=== PATIENT | female | born 1980 | race Caucasian/White ===

== ENCOUNTER 2019-03-17 13:03 | Emergency (ER) | payer BC, OTHER, SELFPAY ==
[~2019-03-17] VITALS: Ht 142.2 cm; Wt 95.5 kg
[2019-03-17] MEDS ORDERED: ONDANSETRON 4MG/2ML VIAL (J2405) IV ONE (14:00)
[2019-03-17] MEDS ORDERED: KETOROLAC 30 MG/ML VIAL (J1885) IV ONE (14:00)
[2019-03-17 14:28] LABS: BASO # 0.1 10^3/uL (0.0-0.2); BASO % 0.4 % (0.0-1.0); EOS # 0.1 10^3/uL (0.0-0.50); EOS % 0.8 % (0.0-3.0); HEMOGLOBIN 14.1 g/dl (12.0-15.5); LYMPH # 1.5 10^3/uL (1.5-4.5); LYMPH % 13.8 % (24.0-44.0); MEAN CORPUSCULAR HEMOGLOBIN 29.6 pg (27.0-33.0); MEAN CORPUSCULAR HGB CONC 32.8 g/dl (32.0-36.5); MEAN CORPUSCULAR VOLUME 90.1 fl (80.0-96.0); MONO # 0.5 10^3/uL (0.0-0.8); MONO % 4.1 % (0.0-5.0); NEUTROPHILS % 80.5 % (36.0-66.0); PLATELET COUNT, AUTOMATED 309 10^3/uL (150-450); RED BLOOD COUNT 4.77 10^6/uL (4.00-5.40); WHITE BLOOD COUNT 11.2 10^3/uL (4.0-10.0)
[2019-03-17 14:51] LABS: ALBUMIN 3.8 GM/DL (3.2-5.2); ALT/SGPT 27 U/L (12-78); BILIRUBIN,TOTAL 1.3 MG/DL (0.2-1.0); BLOOD UREA NITROGEN 11 MG/DL (7-18); CARBON DIOXIDE LEVEL 27 MEQ/L (21-32); CHLORIDE LEVEL 108 MEQ/L (98-107); GLOMERULAR FILTRATION RATE > 60.0 (>58); GLUCOSE, FASTING 129 MG/DL (70-100); LIPASE 86 U/L (73-393); POTASSIUM SERUM 3.6 MEQ/L (3.5-5.1); SODIUM LEVEL 142 MEQ/L (136-145); TOTAL PROTEIN 7.1 GM/DL (6.4-8.2)
--- NOTE | 2019-03-17 15:12 | REP ---
CT ABDOMEN AND PELVIS WITHOUT IV CONTRAST: CT abdomen and pelvis performed without oral or IV contrast. Sagittal and coronal reconstruction images are performed. Visualized lung bases are clear. The liver demonstrates nodular contour at the lateral surface of the inferior aspect of the right lobe of the liver with an approximate diameter of 1.6 cm maximally. The patient has had a prior cholecystectomy. There is no biliary dilatation. The spleen, adrenals, and pancreas are grossly unremarkable. There is moderate right hydroureteronephrosis caused by a 6 x 4 mm calculus at the right ureterovesical junction. There is no abdominal aortic aneurysm. I see no adenopathy. There is no free air or free fluid. No bowel wall thickening is seen. Scattered diverticula are seen of the colon. Small ventral hernia is seen just above the umbilicus with a wide aperture. This only contains fat. Ovaries are present and unremarkable. No pelvic mass is seen. Urinary bladder is not well distended and not well evaluated. There is a small hiatal hernia. IMPRESSION: Calculus at the right ureterovesical junction measures 6 x 4 mm causing moderate right hydroureteronephrosis. Nodular surface contour right lobe of liver inferolaterally 1.6 cm in diameter. Cannot exclude underlying liver nodule. Recommend followup MRI or CT liver with contrast. Electronically Signed by Roverto Bailey MD 03/17/2019 06:48 P
[2019-03-17 20:56] VITALS: BP 113/56
--- NOTE | 2019-03-18 10:40 | HPEPDOC ---
General Date of Admission 03/17/19 Date of Service: Mar 17, 2019 Attending Physician: JADE WALKER MD Chief Complaint The patient is a 38-year-old female admitted with a reason for visit of Right Ureter Stone. History of Present Illness This patient is a 38-year-old female who presented to the [facility] emergency department complaining of right flank pain. CT scan was performed and demonstrated an approximate 5 mm stone at her right ureterovesical junction. The patient was counseled by the emergency room providers on the various treatment options going forward including a trial of passage with medical expulsive therapy as well as endoscopic intervention. The patient initially preferred to proceed to endoscopic intervention. Accordingly she was admitted for same day procedure to the urology service. However while she was waiting for the operating room to become available she changed her mind. She decided she preferred to try to pass the stone without intervention. Home Medications No Active Prescriptions or Reported Meds Allergies Coded Allergies: No Known Allergies (Unverified , 03/17/19) Past Medical History Medical History No relevant past medical history Surgical History History of appendectomy Family History Significant Family History: No pertinent family hx Social History * Smoker: Denies Alcohol: Denies Drugs: denies A-FIB/CHADSVASC A-FIB History Current/History of A-Fib/PAF?: No Current PO Anticoag Therapy: No Age/Risk Factor Scoring CHADSVASC: CHADSVASC Response (Comments) Value Age Risk Factor Age < 65 years old 0 Gender Risk Factor Female 1 Hx of CHF No 0 Hx of HTN No 0 Hx of Stroke/TIA/or VTE No 0 Hx of Diabetes No 0 Hx of Vascular Disease No 0 Total 1 Treatment Treatment ordered: NONE Vital Signs Vital Signs Date Time Temp Pulse Resp B/P (MAP) Pulse Ox O2 Delivery O2 Flow Rate FiO2 03/17/19 20:56 97.5 94 16 113/56 (75) 96 Room Air Laboratory Data Labs 24H Laboratory Tests 2 03/17/19 13:27: Urine Color YELLOW, Urine Appearance HAZY, Urine pH 5.0, Urine Specific [place] 1.024, Urine Protein NEGATIVE, Urine Glucose (UA) NEGATIVE, Urine Ketones 1+H, Urine Blood 3+H, Urine Nitrite NEGATIVE, Urine Bilirubin NEGATIVE, Urine Urobilinogen 0.2, Urine Leukocyte Esterase NEGATIVE, Urine WBC (Auto) 2, Urine RBC (Auto) 172H, Urine Hyaline Casts (Auto) 0, Urine Bacteria (Auto) NEGATIVE, Urine Squamous Epithelial Cells 4, Urine Mucus (Auto) SMALL, Urine Sperm (Auto) 03/17/19 14:16: Immature Granulocyte % (Auto) 0.4, White Blood Count 11.2H, Red Blood Count 4.77, Hemoglobin 14.1, Hematocrit 43.0, Mean Corpuscular Volume 90.1, Mean Corpuscular Hemoglobin 29.6, Mean Corpuscular Hemoglobin Concent 32.8, Red Cell Distribution Width 12.8, Platelet Count 309, Neutrophils (%) (Auto) 80.5H, Lymph ocytes (%) (Auto) 13.8L, Monocytes (%) (Auto) 4.1, Eosinophils (%) (Auto) 0.8, Basophils (%) (Auto) 0.4, Neutrophils # (Auto) 9.0H, Lymphocytes # (Auto) 1.5, Monocytes # (Auto) 0.5, Eosinophils # (Auto) 0.1, Basophils # (Auto) 0.1, Nucleated Red Blood Cells % (auto) 0.0, Anion Gap 7L, Glomerular Filtration Rate > 60.0, Blood Urea Nitrogen 11, Creatinine 0.80, Sodium Level 142, Potassium Level 3.6, Chloride Level 108H, Carbon Dioxide Level 27, Calcium Level 9.0, Aspartate Amino Transf (AST/SGOT) 15, Alanine Aminotransferase (ALT/SGPT) 27, Alkaline Phosphatase 70, Total Bilirubin 1.3H, Total Protein 7.1, Albumin 3.8, Albumin/Globulin Ratio 1.15, Lipase 86 CBC/BMP Laboratory Tests 03/17/19 14:16 Red Blood Count 4.77, Mean Corpuscular Volume 90.1, Mean Corpuscular Hemoglobin 29.6, Mean Corpuscular Hemoglobin Concent 32.8, Red Cell Distribution Width 12.8, Neutrophils (%) (Auto) 80.5 H, Lymphocytes (%) (Auto) 13.8 L, Monocytes (%) (Auto) 4.1, Eosinophils (%) (Auto) 0.8, Basophils (%) (Auto) 0.4, Neutrophils # (Auto) 9.0 H, Lymphocytes # (Auto) 1.5, Monocytes # (Auto) 0.5, Eosinophils # (Auto) 0.1, Basophils # (Auto) 0.1, Calcium Level 9.0, Aspartate Amino Transf (AST/SGOT) 15, Alanine Aminotransferase (ALT/SGPT) 27, Alkaline Phosphatase 70, Total Bilirubin 1.3 H, Total Protein 7.1, Albumin 3.8 Assessment/Plan Right ureterovesical junction stone Plan / VTE VTE Prophylaxis Ordered?: No Plan Plan We have decided to proceed with a trial of passage with medical expulsive therapy: #1 Flomax 0.4 mg daily until stone passes. #2 Tylenol and/or Motrin to be taken as needed for pain. #3 if above are inadequate for pain control patient to call [facility] urology office and we will attempt to coordinate a prescription for something else. #4 patient counseled thoroughly on indications for her to return to emergency room including fevers, inadequate pain control, excessive nausea or vomiting, or any other concerning symptoms. #5 patient counseled that she may benefit from ongoing urologic outpatient evaluation for history of nephrolithiasis. Also counseled that if the stone does not seem to be passing and she desires she can follow up in the urology clinic to plan for an elective stone procedure. Disposition Patient can be discharged from hospital with above plan JADE WALKER MD Mar 18, 2019 10:40
--- NOTE | 2019-03-18 13:20 | ED PDOC ---
Post-Departure Follow-Up certified letter about ct abd/p for fu mlg see report. no pcp documented. give [facility] clinic number and refer there if no pcp and then fax report there Julio Cesar Miller MD Mar 18, 2019 13:20
== END 2019-03-17 20:59 | disposition home or self-care (01) ==
LOC: M ED 13:03 → M SDC 15:34
DX: N20.1 Calculus of ureter (principal); Z53.29 Procedure and treatment not carried out because of patient's decision for other reasons; R10.9 Unspecified abdominal pain; R11.0 Nausea; Z87.442 Personal history of urinary calculi
CPT/HCPCS: 74176; 80053; 81001; 83690; 85025; 96374; 96375; 99284; J1885; J2405